=== PATIENT | male | born 1960 | race Caucasian/White ===

== ENCOUNTER 2022-07-13 09:09 | Emergency (ER) | payer OTHER ==
[~2022-07-13] VITALS: Ht 175.3 cm; Wt 95.7 kg
--- OUTSIDE RECORDS SUMMARY | 2022-07-13 09:13 | XMS ---
PreManage Notification: [employer] Events 1 event(s) in the past 18 months Most recent security events: Elopement at [facility] 06/28/2022 10:11 - Patient eloped before treatment completed. - Patient with suicidal and/or homicidal ideations eloped. - Patient eloped with IV in place. Details: PATIENT LWBS CRITERIA MET - [facility] - 2 Visits in 30 Days CARE PROVIDERS There are no care providers on record at this time. Jose has no Care Guidelines for this patient. E.Abhishek. VISIT COUNT (12 [address] [facility] H. TOTAL 2 NOTE: Visits indicate total known visits. ED/C VISIT TRACKING (12 MO.) 07/13/2022 09:10 [facility] TYPE: Emergency COMPLAINT: - RT ARM INJURY 06/28/2022 10:11 [facility] TYPE: Emergency COMPLAINT: - RT HAND INJURY INPATIENT VISIT TRACKING (12 MO.) No inpatient visits to display in this time frame [email or web address]
[2022-07-13] MEDS ORDERED: CHLORTHALIDONE25 MG PO (10:01)
[2022-07-13] MEDS ORDERED: MONTELUKAST SODI4 MG PO (10:01)
[2022-07-13] MEDS ORDERED: VENTOLIN HFA18 GM INH (10:02)
[2022-07-13] MEDS ORDERED: TOPROL XL25 MG PO (10:03)
[2022-07-13] MEDS ORDERED: VITAMIN D250 MCG PO (10:03)
[2022-07-13] MEDS ORDERED: ALLERGY RELIEF5 M1 PO (10:04)
[2022-07-13] MEDS ORDERED: VAZALORE81 MG PO (10:04)
[2022-07-13] MEDS ORDERED: DIOVAN80 MG PO (10:05)
== END 2022-07-13 10:37 | disposition home or self-care (01) ==
LOC: ED 09:09
DX: S62.314D Displaced fracture of base of fourth metacarpal bone, right hand, subsequent encounter for fracture with routine healing (principal); S62.316D Displaced fracture of base of fifth metacarpal bone, right hand, subsequent encounter for fracture with routine healing; X58.XXXD Exposure to other specified factors, subsequent encounter; Z79.899 Other long term (current) drug therapy; Z79.82 Long term (current) use of aspirin
CPT/HCPCS: 73110; 99283